=== PATIENT | male | born 2000 | race Caucasian/White ===

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

== ENCOUNTER 2022-01-15 18:43 | Emergency (ER) | payer BC | END 2022-01-15 19:02 | disposition home or self-care (01) | LOC: MADERS 18:43 | DX: S20.222A Contusion of left back wall of thorax, initial encounter (principal); F17.220 Nicotine dependence, chewing tobacco, uncomplicated; F17.290 Nicotine dependence, other tobacco product, uncomplicated; X58.XXXA Exposure to other specified factors, initial encounter | CPT/HCPCS: 99283 ==